=== PATIENT | female | born 1955 | race Two or more races ===

== ENCOUNTER → 2024-10-16 | Outpatient (CLI) | payer MEDICARE, SELFPAY ==
--- NOTE | 2024-10-16 14:00 | XR_ITS ---
Examination: Bone densitometry Date and time of exam:October 16, 2024 1504 hrs. Indications: Menopause age 49 Technique: Lumbar spine and hip total bone mineralization values of an calculated. Peak reference and age match control results have been displayed. Findings: Lumbar spine total bone mineralization is0.840 gm/cm2. This is 1.9 standard deviations below peak reference. This is 0.2 standard deviations above age-matched controls. Hip total bone mineralization is 0.812 gm/cm2 This is 1.1 standard deviations below peak reference. This is 0.5 standard deviations above age-matched controls Impression: There is osteopenia based on lumbar spine measurements. There is osteopenia based on hip measurements
--- NOTE | 2024-10-16 14:15 | XR_ITS ---
Examination: Screening digital mammography, bilateral Computer aided detection 3-D breast Tomosynthesis, bilateral Date and time of exam: 10/16/2024, 2:47 PM Comparisons: July 2008 through May 2021 Indications: Screening Technique: Nonmagnified MLO, CC views of the breasts to been obtained, reconstructed from 3-D Tomosynthesis images. R2 computer aided detection program utilized for evaluation of suspicious masses and/or abnormal calcifications. 3-D Tomosynthesis images obtained. Technologist: Findings: The breasts are heterogeneously dense, which may obscure small masses. No evidence of abnormal masses or suspicious calcifications. Impression: BI-RADS category 1: Negative findings (within normal) Recommend 1 year follow-up mammogram
--- NOTE | 2024-10-16 14:30 | XR_ITS ---
Examination: Ultrasound soft tissue right lower extremity Technique: Grayscale sonographic images soft tissue lower extremity right calf Exam date and time: October 16, 2024 1423 hrs. Indications: Lump right calf beginning one month ago. Findings: Edema in the right calf with no discrete solid mass or cyst Impression: No discrete cystic or solid mass
== END | disposition home or self-care (01) ==
PROVIDERS: PCP Internal Medicine; Referring Provider Internal Medicine; Visit Provider Internal Medicine
DX: Z12.31 Encounter for screening mammogram for malignant neoplasm of breast (principal); R92.313 Mammographic fatty tissue density, bilateral breasts; R22.41 Localized swelling, mass and lump, right lower limb; M85.89 Other specified disorders of bone density and structure, multiple sites
CPT/HCPCS: 76882; 77063; 77067; 77080

== ENCOUNTER → 2025-04-21 | Outpatient (CLI) | payer MEDICARE, MEDICAID, SELFPAY ==
--- NOTE | 2025-04-21 09:46 | EKG_ITS ---
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 : 1955 Requested By: Nathaniel Wood Order Number: [id number] Reading MD: Nathaniel Wood Measurements Intervals [place] Rate: 77 P: 40 CO: 219 QRS: -68 QRSD: 91 T: 12 QT: 395 QTc: 449 Interpretive Statements SINUS RHYTHM WITH FIRST DEGREE AV BLOCK WITH OCCASIONAL SUPRAVENTRICULAR PREMATURE COMPLEXES MARKED LEFT AXIS DEVIATION [QRS AXIS < -30] LOW QRS VOLTAGE IN PRECORDIAL LEADS [QRS DEFLECTION < 1.0 mV IN CHEST LEADS] PATTERN CONSISTENT WITH PULMONARY DISEASE INCOMPLETE RIGHT BUNDLE BRANCH BLOCK [90+ ms QRS DURATION, TERMINAL R IN V1/V2, 40+ ms S IN I/aVL/V4/V5/V6] Compared to ECG 11/30/2023 08:03:35 First degree AV block now present Left-axis deviation now present Low QRS voltage now present Incomplete right bundle-branch block now present Right-axis deviation no longer present Myocardial infarct finding no longer present T-wave abnormality no longer present Possible ischemia no longer present /store/[id number].pdf
== END | disposition home or self-care (01) ==
PROVIDERS: PCP Internal Medicine; Referring Provider Ophthalmology; Visit Provider Ophthalmology
DX: Z01.810 Encounter for preprocedural cardiovascular examination (principal); H25.811 Combined forms of age-related cataract, right eye
CPT/HCPCS: 93005